=== PATIENT | female | born 1990 | race Caucasian/White ===

== ENCOUNTER 2016-09-21 10:47 | Emergency (ER) | payer OTHER ==
[~2016-09-21 10:47] MED LIST: ATARAX PO; DEPO-PROVER150 MG/ML; MEDROL DOSEPAK4 MG PO; MEDROL4 MG/DOSE- PO; PEPCID AC20 MG PO; TYLOX1 CAP 5/50 DOB; ZYRTEC10 M2 PO
== END 2016-09-21 11:39 | disposition home or self-care (01) ==
LOC: SED 10:47
DX: K08.89 Other specified disorders of teeth and supporting structures (principal); F17.210 Nicotine dependence, cigarettes, uncomplicated
CPT/HCPCS: 99282

== ENCOUNTER 2017-01-06 04:24 | Emergency (ER) | payer OTHER ==
--- NOTE | ~2017-01-06 | CT2 ---
[facility] A Service of [facility] RADIOLOGY TEXT RESULTS PATIENT: FELICIA SALAS LOCATION: SED : 86 UNIT #: [id number] AGE: [address]: Chandrakant Nova MD SEX: F ORDER DR: [id number] [place] [id number] E MR#: [id number] Acc #: [id number] NAME: FELICIA SALAS : 1990 SEX: F STUDY DATE/TIME: 01/06/2017 6:04 UNIT: SED ROOM: STUDY DESCRIPTION: CT Abd and Pelv W Cont Attending Physician: Chandrakant Nova M.D. Ordering Physician: Chandrakant Noav M.D. Primary Care Physician: [facility] IMAGING REPORT This report is preliminary unless electronic signature is present. EXAM CT abdomen and pelvis 01/06 INDICATIONS Right lower quadrant pain with nausea over the last 2-3 days. Pain rates 8/10. TECHNIQUE Axial images were obtained through the abdomen and pelvis following IV contrast administration. Multiplanar reformats were obtained. This CT exam was performed with one or more of the following radiation dose reduction techniques: automatic exposure control, adjustment of mA and/or kV according to patient size, and iterative reconstruction. COMPARISON No comparison. FINDINGS Abdomen: Alveolar opacity in the right lower lobe is presumably some atelectasis. Gallbladder is unremarkable. There is no biliary obstruction. There is a 7 mm nonobstructing stone in the right kidney. Solid organs are otherwise normal. The unopacified GI tract is normal. Pelvis: The appendix is surgically absent. The unopacified GI tract is otherwise normal. Urinary bladder is normal. Prominent pelvic veins on both sides and could reflect pelvic congestion syndrome. Solid pelvic organs are normal. There is some thickening of the right lower rectus abdominus muscle with some fat stranding behind it. Cannot exclude the possibility of some hematoma. This could also be related to prior surgery. IMPRESSION 1. The unopacified GI tract is normal except for changes of appendectomy. [facility] A Service of [facility] RADIOLOGY TEXT RESULTS PATIENT: FELICIA SALAS [place] [facility] [place] [birth year] UNIT #: [id number] AGE: [address]: Chandrakant Nova MD SEX: F ORDER DR: 2. Asymmetric thickening of the right lower rectus abdominus muscle with some posterior adjacent fat stranding. This could reflect mild rectus hematoma but it could also be related to prior surgery. 3. Nonobstructing stone in the right kidney. 4. Prominent pelvic veins can be seen in the setting of pelvic congestion syndrome. Dictated by... Duc Billings Jr., M.D. THIS IS AN ELECTRONICALLY VERIFIED REPORT Duc Billings Jr., M.D. at 01/06/2017 12:57 PM RLK/jill TD: 01/06/2017 12:55 JOB #: [id number] MEDICAL IMAGING REPORT Page 1 of 1
[2017-01-06] MEDS ORDERED: NO MEDICATIONS (04:34)
[2017-01-06 05:08] LABS: URINE SOURCE CLEAN CATCH
[2017-01-06 05:11] LABS: BASOPHIL# 0.1 X10e3 (0-0.3); BASOPHIL% 0.8 % (0-2.5); EOSINOPHIL# 0.2 X10e3 (0-0.7); EOSINOPHIL% 1.8 % (0.0-7.0); HEMATOCRIT 38.6 % (35.0-45.0); HEMOGLOBIN 12.9 gm/dL (12.0-16.0); LYMPHOCYTE# 4.5 X10e3 (1.0-3.5); LYMPHOCYTE% 45.9 % (17.0-45.0); MEAN CELL VOLUME 86.7 FL (83-96); MEAN CORPUSCULAR HEMOGLOBIN 28.9 PG (28-34); MEAN CORPUSCULAR HGB CONC 33.4 g/dL (30-36); MEAN PLATELET VOLUME 9.4 FL (6.5-11.5); MONOCYTE# 0.5 X10e3 (0-1.0); MONOCYTE% 5.2 % (3.0-12.0); NEUTROPHIL# 4.6 X10e3 (1.5-7.1); NEUTROPHIL% 46.3 % (40-75); PLATELET COUNT 190 X10e3 (140-420); RED BLOOD COUNT 4.45 X10e (3.90-5.30); RED CELL DISTRIBUTION WIDTH 12.9 % (11.0-15.5); URINE APPEARANCE CLEAR; URINE BILIRUBIN NEG (NEG); URINE BLOOD NEG (NEG); URINE COLOR YELLOW; URINE GLUCOSE NEG (NORM); URINE KETONE NEG (NEG); URINE LEUKOCYTE ESTERASE TRACE (NEG); URINE NITRATE NEG (NEG); URINE PH 5.5 (5-8); URINE PROTEIN NEG (NEG); URINE SPECIFIC GRAVITY 1.015 (1.003-1.035); URINE UROBILINOGEN 0.2 MG/DL (NORM); WHITE BLOOD COUNT 9.9 X10e3 (4.0-10.5)
[2017-01-06 05:12] LABS: DIFF IND NO; MICRO INDICATED? YES
[2017-01-06 05:14] LABS: CULTURE INDICATED? YES; URINE BACTERIA 1+ (NEG); URINE RBC 0-2 /[HPF] (0-2); URINE SQUAMOUS EPITHELIAL CELL OCCAS /[HPF]; URINE TRANSITIONAL EPI CELLS FEW /[HPF]
[2017-01-06 05:27] LABS: ALBUMIN SERUM 4.1 g/dL (3.5-5.0); ALKALINE PHOSPHATASE 61 U/L (32-92); ALT (SGPT) 20 U/L (10-40); AST (SGOT) 41 U/L (10-42); BILIRUBIN,TOTAL 0.4 mg/dL (0.2-2.0); BLOOD UREA NITROGEN 10 mg/dL (9-23); BUN/CREATININE RATIO 14.28; CALCIUM SERUM 8.6 mg/dL (8.4-10.2); CARBON DIOXIDE 21 mmol/L (22-31); CHLORIDE 106 mmol/L (100-111); CREATININE SERUM 0.7 mg/dL (0.6-1.4); GLOM FILT RATE Estimated 117.9 mL/min (>60); GLUCOSE FASTING 98 mg/dL (70-110); LIPASE 31 U/L (22-51); POTASSIUM 3.6 mmol/L (3.5-5.1); PROTEIN TOTAL SERUM 7.1 g/dL (6.0-8.3); SODIUM 134 mmol/L (135-145)
[2017-01-06 05:28] LABS: BILIRUBIN, DIRECT <0.1 mg/dL (0.0-0.2); BILIRUBIN,INDIRECT 0.3 mg/dL (0.0-0.9)
== END 2017-01-06 07:17 | disposition home or self-care (01) ==
LOC: SED 04:24
PROVIDERS: Emergency Medicine
DX: S39.011A Strain of muscle, fascia and tendon of abdomen, initial encounter (principal); F17.200 Nicotine dependence, unspecified, uncomplicated; Z90.49 Acquired absence of other specified parts of digestive tract; X50.1XXA Overexertion from prolonged static or awkward postures, initial encounter
CPT/HCPCS: 36415; 74177; 80048; 80076; 81003; 83690; 84703; 85025; 87086; 87088; 87186; 96361; 96374; 96375; 99284; J1170; J2405; Q9967